=== PATIENT | female | born 1975 | race Caucasian/White ===

== ENCOUNTER 2017-01-22 23:38 | Emergency (ER) | payer OTHER ==
[~2017-01-22] VITALS: Ht 162.6 cm; Wt 81.6 kg
[~2017-01-22 23:38] MED LIST: MECL25TA3 PO
--- NOTE | 2017-01-22 23:54 | ED.ADGEN ---
Past History Past Medical History: Anxiety, Diabetes Past Surgical History: Appendectomy, Tonsillectomy, Tubal ligation, Other Alcohol Use: None Drug Use: None Adult General Chief Complaint Chief Complaint ".. I ve had severe diarrhea for last 3 days... up to like 50 stools a day... ".." It is like I have a stomach flu..." HPI HPI Patient is a 41 year old female who presents with generalized abdomen pain and watery diarrhea up 50 x day. Pt. works in physical therapy. No specific history of ill contacts. No recent travel. No history of bad food. Patient normally healthy. Review of Systems Review of Systems Constitutional: Denies fever or chills [] Eyes: Denies change in visual acuity, redness, or eye pain [] HENT: Denies nasal congestion or sore throat [] Respiratory: Denies cough or shortness of breath [] Cardiovascular: No additional information not addressed in HPI [] GI: Complaints of generalized abdominal pain, nausea, and diarrhea [] : Denies dysuria or hematuria [] Musculoskeletal: Denies back pain or joint pain [] Integument: Denies rash or skin lesions [] Neurologic: Denies headache, focal weakness or sensory changes [] Endocrine: Denies polyuria or polydipsia [] Family History Family History Noncontributory Current Medications Current Medications Current Medications Medications (Trade) Dose Ordered Sig/Caity Start Time Stop Time Status Last Admin Dose Admin Famotidine (Pepcid) 20 mg 1X ONCE 01/23/17 00:15 01/23/17 00:16 DC Lactated Ringer's (Iv Lactated Ringers) 1,000 ml @ 1,000 mls/hr Q1H 01/23/17 00:00 01/23/17 01:04 DC Morphine Sulfate (Morphine 10mg Syringe) 10 mg 1X ONCE 01/23/17 00:15 01/23/17 00:16 DC Ondansetron HCl (Zofran) 8 mg 1X ONCE 01/23/17 00:00 01/23/17 00:01 DC Allergies Allergies Allergies Coded Allergies Type Severity Reaction Last Updated Verified No Known Drug Allergies 11/15/15 No Physical Exam Physical Exam Constitutional: Moderate distress, non-toxic appearance. [] HENT: Normocephalic, atraumatic, bilateral external ears normal, oropharynx dry, , no oral exudates, nose normal. [] Eyes: PERRLA, EOMI, conjunctiva normal, no discharge. [] Neck: Normal range of motion, no tenderness, supple, no stridor. [] Cardiovascular:Heart rate regular rhythm, no murmur [] Lungs & Thorax: Bilateral breath sounds clear to auscultation [] Abdomen: Bowel sounds hyperactive,, soft, mild generalized tenderness, no masses , no pulsatile masses. No true rebound. Old surgical scars. Skin: Warm, dry, no erythema, no rash. [Multiple tattoos Back: No tenderness, no CVA tenderness. [] Extremities: No tenderness, no cyanosis, no clubbing, ROM intact, no edema. No psoas or obturator sign Neurologic: Alert and oriented X 3, normal motor function, normal sensory function, no focal deficits noted. [] Psychologic: Affect anxious, judgement normal, mood normal. [] Current Patient Data Vital Signs Vital Signs Date Time Temp Pulse Resp B/P Pulse Ox O2 Delivery O2 Flow Rate FiO2 01/23/17 00:54 80 122/62 01/22/17 23:55 98.4 20 99 Room Air Lab Results Laboratory Tests Test 01/22/17 23:59 White Blood Count 11.9x10^3/uL (4.0-11.0) H Red Blood Count 4.49x10^6/uL (3.50-5.40) Hemoglobin 13.1g/dL (12.0-15.5) Hematocrit 39.2% (36.0-47.0) Mean Corpuscular Volume 87fL (79-100) Mean Corpuscular Hemoglobin 29pg (25-35) Mean Corpuscular Hemoglobin Concent 33g/dL (31-37) Red Cell Distribution Width 13.7% (11.5-14.5) Platelet Count 254x10^3/uL (140-400) Neutrophils (%) (Auto) 57% (31-73) Lymphocytes (%) (Auto) 28% (24-48) Monocytes (%) (Auto) 10% (0-9) H Eosinophils (%) (Auto) 4% (0-3) H Basophils (%) (Auto) 1% (0-3) Neutrophils # (Auto) 6.8x10^3uL (1.8-7.7) Lymphocytes # (Auto) 3.4x10^3/uL (1.0-4.8) Monocytes # (Auto) 1.2x10^3/uL (0.0-1.1) H Eosinophils # (Auto) 0.4x10^3/uL (0.0-0.7) Basophils # (Auto) 0.1x10^3/uL (0.0-0.2) Urine Collection Type Unknown Urine Color Straw Urine Clarity Clear Urine pH 6.5 Urine Specific [place] 1.010 Urine Protein 30 mg/dl (NEG-TRACE) Urine Glucose (UA) Negmg/dL (NEG) Urine Ketones (Stick) Negmg/dL (NEG) Urine Blood Trace (NEG) Urine Nitrite Neg (NEG) Urine Bilirubin Neg (NEG) Urine Urobilinogen Dipstick 0.2mg/dL (0.2 mg/dL) Urine Leukocyte Esterase Neg (NEG) Urine RBC Occ/HPF (0-2) Urine WBC 0/HPF (0-4) Urine Squamous Epithelial Cells Mod/LPF Urine Bacteria Few/HPF (0-FEW) Maternal Serum HCG Beta Subunit < 1mIU/mL (0-6) Sodium Level 139mmol/L (136-145) Potassium Level 3.4mmol/L (3.5-5.1) L Chloride Level 104mmol/L (98-107) Carbon Dioxide Level 25mmol/L (21-32) Anion Gap 10 (6-14) Blood Urea Nitrogen 8mg/dL (7-20) Creatinine 0.8mg/dL (0.6-1.0) Estimated GFR (Cockcroft-Gault) 79.0 Glucose Level 135mg/dL (70-99) H Calcium Level 8.8mg/dL (8.5-10.1) Total Bilirubin 0.4mg/dL (0.2-1.0) Direct Bilirubin 0.1mg/dL (0.0-0.2) Aspartate Amino Transferase (AST) 15U/L (15-37) Alanine Aminotransferase (ALT) 26U/L (14-59) Alkaline Phosphatase 91U/L (46-116) Total Protein 8.0g/dL (6.4-8.2) Albumin 3.9g/dL (3.4-5.0) Amylase Level 47U/L (25-115) Lipase 223U/L (73-393) Urine Opiates Screen Neg (NEG) Urine Methadone Screen Neg (NEG) Urine Barbiturates Neg (NEG) Urine Phencyclidine Screen Neg (NEG) Urine Amphetamine/Methamphetamine Neg (NEG) Urine Benzodiazepines Screen Neg (NEG) Urine Cocaine Screen Neg (NEG) Urine Cannabinoids Screen Neg (NEG) Urine Ethyl Alcohol Neg (NEG) EKG EKG [] Radiology/Procedures Radiology/Procedures [] Course & Med Decision Making Course & Med Decision Making Pertinent Labs and Imaging studies reviewed. (See chart for details). Pt. at 0040 hrs advised she felt so much better, she wanted to refuse further work up or any meds. Pt. encouraged to stay on a clear fluid diet only for 48 hours. No milk products no solids. Clear fluids only to allow bowel rest. Patient encouraged to try [id number] Pepto-Bismol diarrhea reoccurs. Patient encouraged to return if she decided she wanted further workup. Patient must follow-up primary care. [] Final Impression Final Impression 1. Abdomen Pain 2. Diarrhea[] Problems: Dragon Disclaimer Dragon Disclaimer This electronic medical record was generated, in whole or in part, using a voice recognition dictation system. TIFFANIE SERRANO MD Jan 22, 2017 23:54
[2017-01-23] MEDS ORDERED: IV RINGERS SOLUTION,LACTATED 1,000 ML IV SCH
[2017-01-23] MEDS ORDERED: ONDANSETRON PF 4 MG/2 ML VIAL. IV ONE
[2017-01-23] MEDS ORDERED: FAMOTIDINE 20 MG/2 ML VIAL IVP ONE (00:15)
[2017-01-23] MEDS ORDERED: MORPHINE SULFATE 10 MG/ML SYRINGE. SQ ONE (00:15)
[2017-01-23 00:27] LABS: BASO # 0.1 x10^3/uL (0.0-0.2); BASO % 1 % (0-3); EOS # 0.4 x10^3/uL (0.0-0.7); EOS % 4 % (0-3); HEMATOCRIT 39.2 % (36.0-47.0); HEMOGLOBIN 13.1 g/dL (12.0-15.5); LYMPH # 3.4 x10^3/uL (1.0-4.8); LYMPH % 28 % (24-48); MEAN CORPUSCULAR HEMOGLOBIN 29 pg (25-35); MEAN CORPUSCULAR HGB CONC 33 g/dL (31-37); MEAN CORPUSCULAR VOLUME 87 fL (79-100); MONO # 1.2 x10^3/uL (0.0-1.1); MONO % 10 % (0-9); NEUT # 6.8 x10^3uL (1.8-7.7); NEUT % 57 % (31-73); PLATELET COUNT 254 x10^3/uL (140-400); RED BLOOD COUNT 4.49 x10^6/uL (3.50-5.40); RED CELL DISTRIBUTION WIDTH 13.7 % (11.5-14.5); WHITE BLOOD COUNT 11.9 x10^3/uL (4.0-11.0)
[2017-01-23 00:45] LABS: ALBUMIN 3.9 g/dL (3.4-5.0); CALCIUM 8.8 mg/dL (8.5-10.1); CREATININE 0.8 mg/dL (0.6-1.0); DIRECT BILIRUBIN 0.1 mg/dL (0.0-0.2); POTASSIUM 3.4 mmol/L (3.5-5.1); TOTAL BILIRUBIN 0.4 mg/dL (0.2-1.0)
[2017-01-23 00:46] LABS: BARBITURATES NEG (NEG); BENZODIAZEPINES NEG (NEG); CANNABINOIDS NEG (NEG); COCAINE NEG (NEG); METHADONE NEG (NEG); OPIATES NEG (NEG); PHENCYCLIDINE NEG (NEG)
[2017-01-23 00:53] LABS: BILIRUBIN,URINE NEG (NEG); CLARITY,URINE CLEAR; COLOR,URINE STRAW; GLUCOSE,URINE NEG (NEG); NITRITE,URINE NEG (NEG); RBC,URINE OCC /HPF (0-2); UROBILINOGEN,URINE 0.2 mg/dL (0.2 mg/dL)
[2017-01-23 00:54] VITALS: BP 122/62
[2017-01-23 00:54] LABS: BACTERIA,URINE FEW /HPF (0-FEW); SQUAMOUS EPITHELIAL CELL,UR MOD /LPF; WBC,URINE 0 /HPF (0-4)
[2017-01-23 00:57] LABS: AMPHETAMINE/METHAMPHETAMINE NEG (NEG)
== END 2017-01-23 01:04 | disposition home or self-care (01) ==
LOC: ER 23:38
DX: R10.84 Generalized abdominal pain (principal); R19.7 Diarrhea, unspecified; R11.0 Nausea; E11.9 Type 2 diabetes mellitus without complications; Z90.49 Acquired absence of other specified parts of digestive tract; Z98.51 Tubal ligation status
CPT/HCPCS: 36415; 80048; 80076; 80305; 81001; 82150; 83690; 84702; 85027; G0481; 99284-25

== ENCOUNTER 2017-07-26 13:38 | Emergency (ER) | payer SELFPAY ==
[~2017-07-26] VITALS: Ht 170.2 cm; Wt 99.8 kg
[2017-07-26] MEDS ORDERED: AMOX875T PO (14:34)
[2017-07-26 14:36] VITALS: BP 141/71
--- NOTE | 2017-07-26 14:38 | PHYS DOC ---
General Chief Complaint: MULTIPLE COMPLAINTS Stated Complaint: MULTIPLE COMPLAINTS Time Seen by MD: 14:04 Source: patient Exam Limitations: no limitations Problems: History of Present Illness Initial Comments Patient is a 42-year-old female who comes to the ED with facial pressure and intermittent dizziness. 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 She states that due to benefits she has been off of all of her medications including oral diabetes medications and SSRI for 5-6 weeks. She states that she will not resume those medications until she obtains her disability status anticipated on September 03. Patient states that for the past 7-10 days she's had facial pressure worse with forward bending, green productive cough and nasal discharge, and intermittent dizziness with sudden head movements (patient states she is had benign positional vertigo diagnosis in the past.) She denies any chest pain, shortness of breath, global headache, fever chills sweats or myalgias. Denies any bowel or bladder symptoms and states that she understands the risks of not being on her medications but states she has no choice. Fingerstick blood glucose is 134 in the department nonfasting patient has diabetic testing supplies at home as well as simvastatin. She's been off Lexapro for 5-6 weeks and is aware of serotonin syndrome, states approximately 3 weeks ago she had several days of "worsening diabetic neuropathy" which in retrospect she can attributed to possible mild serotonin syndrome. Otherwise she 's had no new or worsening neurologic symptoms. Timing/Duration: 1 week, constant Severity: moderate Modifying Factors: worse with movement, improves with rest Associated Symptoms: cough, headaches Allergies: Coded Allergies: No Known Drug Allergies (Unverified , 11/15/15) Departure Time of Disposition: 14:35 Disposition: 01 HOME, SELF-CARE Diagnosis: acute sinusitis, left serous otitis media Condition: GOOD Patient Instructions: Serous Otitis Media, Sinusitis, [id number] Additional Instructions: Off work today, note given. Continue home glucose monitoring and seek medical assistance as needed. Aggressive hydration to prevent dehydration and liquefy secretions and mucous. [id number] Tylenol as needed. Prescription: Amoxicillin Follow-up with a doctor in 5-7 days if no improvement. Return to ED with new or changing symptoms. Past Medical History Medical History: other (diabetes, diabetic neuropathy, anxiety, hypothyroidism , benign positional vertigo) Surgical History: other (appendectomy, tonsillectomy, tubal ligation) Social History Smoker: non-smoker Alcohol: none Drugs: none Review of Systems Constitutional: denies chills, denies diaphoresis, denies fever, denies malaise EENTM: see HPI, ear pain, denies ear discharge, nose congestion Respiratory: see HPI, cough, denies shortness of breath, denies wheezing Cardiovascular: denies chest pain, denies palpitations, denies syncope Gastrointestinal: denies abdominal pain, denies diarrhea, denies nausea, denies vomiting Genitourinary: denies dysuria, denies frequency, denies hematuria Musculoskeletal: denies back pain, denies joint swelling, denies neck pain Psychiatric/Neurological: see HPI, headache Hematologic/Lymphatic: denies blood clots, denies easy bleeding, denies easy bruising Physical Exam General Appearance: WD/WN, no apparent distress Eyes: bilateral eye normal inspection, bilateral eye PERRL, bilateral eye EOMI Ear, Nose, Throat: other (serous fluid noted bilaterally left greater than right, yellow nasal discharge and postnasal drip as well as frontal and maxillary sinus tenderness) Neck: non-tender, supple Respiratory: normal breath sounds, no respiratory distress Cardiovascular: normal peripheral pulses, regular rate, rhythm Gastrointestinal: non tender, soft Back: no CVA tenderness, no vertebral tenderness Extremities: non-tender, normal inspection Neurologic/Psychiatric: baseball winder II-XII nml as tested, no motor/sensory deficits, alert, normal mood/affect, oriented x 3 Skin: normal color, warm/dry Orders, Labs, Meds Acute sinusitis with resultant eustachian tube dysfunction and intermittent benign positional vertigo symptoms noted to be cause of the patient's presenting complaints. I discussed treatment, including Antivert, antimicrobial therapy, and continuing of her chronic medications. I discussed the danger and risk of end organ damage with untreated chronic disease. Patient states that she cannot afford the medications and will not obtain those prescriptions until September 03. I discussed resources such as [facility] and [facility], patient states to take those and the consideration. I discussed treatment options, patient states that realistically she will fill an amoxicillin prescription for her sinus infection but that she has prescriptions for her other conditions that she simply will not/cannot fill due to finances. 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 She is alert and oriented 3 and understands the risks of untreated chronic disease, no further testing indicated no acute emergent condition present on physical exam. Patient's questions were answered she expressed agreement and understanding of the treatment plan. PREET ADAME DO Jul 26, 2017 14:38
== END 2017-07-26 14:56 | disposition home or self-care (01) ==
LOC: ER 13:38
DX: J01.90 Acute sinusitis, unspecified (principal); H65.92 Unspecified nonsuppurative otitis media, left ear; E11.40 Type 2 diabetes mellitus with diabetic neuropathy, unspecified; E03.9 Hypothyroidism, unspecified
CPT/HCPCS: 82947; 99282; 99283

== ENCOUNTER 2017-08-13 10:44 | Emergency (ER) | payer SELFPAY ==
[~2017-08-13] VITALS: Ht 170.2 cm; Wt 99.8 kg
[~2017-08-13 10:44] MED LIST changes: +AMOX875T PO
[2017-08-13 11:12] VITALS: BP 163/70
[2017-08-13] MEDS ORDERED: IV RINGERS SOLUTION,LACTATED 1,000 ML IV SCH (11:30)
[2017-08-13 11:43] LABS: BASO # 0.1 x10^3/uL (0.0-0.2); BASO % 1 % (0-3); EOS # 0.1 x10^3/uL (0.0-0.7); EOS % 1 % (0-3); HEMATOCRIT 38.4 % (36.0-47.0); HEMOGLOBIN 13.3 g/dL (12.0-15.5); LYMPH # 1.8 x10^3/uL (1.0-4.8); LYMPH % 18 % (24-48); MEAN CORPUSCULAR HEMOGLOBIN 30 pg (25-35); MEAN CORPUSCULAR HGB CONC 35 g/dL (31-37); MEAN CORPUSCULAR VOLUME 86 fL (79-100); MONO # 0.8 x10^3/uL (0.0-1.1); MONO % 8 % (0-9); NEUT # 7.1 x10^3uL (1.8-7.7); NEUT % 72 % (31-73); PLATELET COUNT 280 x10^3/uL (140-400); RED BLOOD COUNT 4.46 x10^6/uL (3.50-5.40); RED CELL DISTRIBUTION WIDTH 13.8 % (11.5-14.5); WHITE BLOOD COUNT 9.9 x10^3/uL (4.0-11.0)
--- NOTE | 2017-08-13 11:43 | RAD ---
Portable AP upright view CXR: Clinical indications: Cough. Comparison: November 15, 2015 Findings: No acute lung infiltrate or pleural effusion or pulmonary edema or lung mass or pneumothorax is seen. The heart size, pulmonary vasculature, mediastinum and both carlos are unremarkable. Impression: No acute radiographic abnormality is seen.
[2017-08-13 11:45] LABS: BARBITURATES NEG (NEG); BENZODIAZEPINES NEG (NEG); CANNABINOIDS NEG (NEG); COCAINE NEG (NEG); METHADONE NEG (NEG); OPIATES NEG (NEG); PHENCYCLIDINE NEG (NEG)
[2017-08-13 11:46] LABS: AMPHETAMINE/METHAMPHETAMINE NEG (NEG)
--- NOTE | 2017-08-13 11:49 | PHYS DOC ---
General Chief Complaint: HEADACHE Stated Complaint: H/A Time Seen by MD: 11:10 Source: patient, old records Exam Limitations: no limitations Problems: History of Present Illness Initial Comments Patient's a 42-year-old female who comes to the ED via EMS for headache dizziness and nausea. 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 She complains of a frontal headache worse with forward bending, nasal congestion, ear fullness , and dizziness. She admits to not drinking very much and her headache and lightheadedness are worse when she is up and active. Patient was seen here 2 weeks ago diagnosed with sinusitis and benign positional vertigo she states she took 2 of her amoxicillin pills and has not completed any of the other therapy. When asked why she didn't take her full antibiotic course she did not have any answer. She has history of diabetes hypothyroidism and anxiety, she has taken herself off of all her medications several months ago because she says she can't afford them. She is waiting for disability at which time she states she will get back on top of her health care. On arrival her blood pressure is 163/70 otherwise vital signs are stable. She denies chest pain shortness of breath abdominal pain nausea vomiting or diarrhea. No fever chills sweats or body aches and states she has history of asthma and has had a dry cough no dyspnea on exertion. Timing/Duration: intermittent Severity: mild Modifying Factors: worse with movement Associated Symptoms: cough, headaches, other Allergies: Coded Allergies: No Known Drug Allergies (Unverified , 11/15/15) Past Medical History Medical History: other (anxiety, asthma, diabetes, hypothyroidism) Surgical History: other Social History Smoker: cigarettes, other (vape pen) Alcohol: none Drugs: none Review of Systems Constitutional: denies chills, denies diaphoresis, denies fever, malaise EENTM: see HPI, denies eye pain, denies blurred vision, ear pain, denies ear discharge, nose congestion, denies throat pain, denies throat swelling Respiratory: cough, denies shortness of breath, denies wheezing Cardiovascular: denies chest pain, denies palpitations, denies syncope Gastrointestinal: denies abdominal pain, denies diarrhea, denies nausea, denies vomiting Genitourinary: denies dysuria, denies frequency, denies hematuria Musculoskeletal: denies back pain, denies joint swelling, denies neck pain Psychiatric/Neurological: see HPI, denies paresthesia, denies seizure, denies weakness Physical Exam General Appearance: no apparent distress, obese Eyes: bilateral eye normal inspection, bilateral eye PERRL, bilateral eye EOMI Ear, Nose, Throat: hearing grossly normal, normal ENT inspection, normal pharynx, other (yellow nasal, frontal sinus tenderness) Neck: full range of motion (further), supple Respiratory: chest non-tender, lungs clear, normal breath sounds, no respiratory distress Cardiovascular: normal peripheral pulses, regular rate, rhythm Gastrointestinal: non tender, soft Back: no CVA tenderness, no vertebral tenderness Extremities: normal range of motion, non-tender Neurologic/Psychiatric: supervisory investigative specialist II-XII nml as tested, no motor/sensory deficits, alert, normal mood/affect, oriented x 3 Skin: normal color, warm/dry Orders, Labs, Meds EKG: Normal sinus rhythm 69 bpm no STEMI. Interpreted by Dr. Adame. PATIENT: DONELL SHERIDAN ACCOUNT: [id number] : 1975 LOCATION: ER AGE: 42 SEX: F EXAM STATUS: REG ER ORD. PHYSICIAN: PREET ADAME DO REASON: cough, PROCEDURE: PORTABLE CHEST 1V Portable AP upright view CXR: Clinical indications: Cough. Comparison: November 15, 2015 Findings: No acute lung infiltrate or pleural effusion or pulmonary edema or lung mass or pneumothorax is seen. The heart size, pulmonary vasculature, mediastinum and both carlos are unremarkable. Impression: No acute radiographic abnormality is seen. DICTATED AND SIGNED BY: BATSHEVA LARSEN MD DATE: 08/13/17 1140 CC: RANJAN JOSEPH MD; PREET ADAME DO ~ Labs and urine studies unremarkable. Patient received normal saline IV bolus 1 L, DuoNeb, and actually prior to her results becoming available the patient was requesting to leave because she felt better. I discussed signs and symptoms to monitor as well as indications for urgent return. I discussed compliance with medications and control of chronic illnesses. Her questions were answered to her satisfaction and she expressed agreement and understanding with the treatment plan and follow-up. Departure Time of Disposition: 13:10 Disposition: 01 HOME, SELF-CARE Diagnosis: chronic sinusitis, untreated chronic disease Condition: GOOD Patient Instructions: Sinus Headache, [id number] Additional Instructions: Rest, no strenuous activity. Aggressive hydration with Gatorade or water. Finish prior amoxicillin prescription. Go fill your thyroid medications and start taking them. Continue close glucose monitoring. Follow-up with your doctor next week for recheck. Return to ED with new or changing symptoms. PREET ADAME DO Aug 13, 2017 11:49
[2017-08-13] MEDS ORDERED: ONDANSETRON PF 4 MG/2 ML VIAL. IV ONE (11:50)
[2017-08-13] MEDS ORDERED: KETOROLAC 30 MG/ML VIAL. IV ONE (11:50)
[2017-08-13] MEDS ORDERED: ONDANSETRON ODT 4 MG TAB.RAPDIS PO ONE (11:55)
[2017-08-13] MEDS ORDERED: IPRATRPIUM/ALBUTEROL 0.5/2.5MG 3 ML NEBU. NEB ONE (11:55)
[2017-08-13 11:57] LABS: ALBUMIN 3.8 g/dL (3.4-5.0); CALCIUM 8.7 mg/dL (8.5-10.1); CREATININE 0.7 mg/dL (0.6-1.0); GFR 91.8; TOTAL BILIRUBIN 0.4 mg/dL (0.2-1.0); TOTAL PROTEIN 7.8 g/dL (6.4-8.2)
[2017-08-13 12:02] LABS: BILIRUBIN,URINE NEG (NEG); CLARITY,URINE CLEAR; COLOR,URINE STRAW; GLUCOSE,URINE NEG (NEG); UROBILINOGEN,URINE 0.2 mg/dL (0.2 mg/dL)
[2017-08-13 12:03] LABS: BACTERIA,URINE 0 /HPF (0-FEW); NITRITE,URINE NEG (NEG); RBC,URINE 0 /HPF (0-2); SQUAMOUS EPITHELIAL CELL,UR FEW /LPF; WBC,URINE RARE /HPF (0-4)
[2017-08-13] MEDS ORDERED: IV NORMAL SALINE 1,000ML 1,000 ML IV SCH (12:16)
--- NOTE | 2017-08-13 13:57 | EKG ---
[address] [address] Test Date: 2017-08-13 Test Time: 12:29:06 Pat Name: DONELL SHERIDAN Department: Room: Gender: F Air Traffic Instructor: KEN : 1975 Requested By: PREET ADAME Order Number: [id number] Reading MD: Sebastián Magallon MD Measurements Intervals [place] Rate: 69 P: 55 [place]: 160 QRS: 1 QRSD: 86 T: 40 QT: 418 QTc: 449 Interpretive Statements SINUS RHYTHM Electronically Signed On 08-16-2017 10:53:24 WEATHERIZATION TECHNICIAN by Sebastián Magallon MD
== END 2017-08-13 13:23 | disposition home or self-care (01) ==
LOC: ER 10:44
DX: J32.9 Chronic sinusitis, unspecified (principal); E03.9 Hypothyroidism, unspecified; E11.9 Type 2 diabetes mellitus without complications; J45.909 Unspecified asthma, uncomplicated; F41.9 Anxiety disorder, unspecified; F17.210 Nicotine dependence, cigarettes, uncomplicated
CPT/HCPCS: 36415; 71010; 80053; 80307; 81001; 82550; 82947; 84484; 85025; 93005; 94640; 96360; 99285; G0480; J7120; J7620; G0479

== ENCOUNTER 2017-09-15 09:19 | Emergency (ER) | payer SELFPAY ==
[~2017-09-15] VITALS: Ht 170.2 cm; Wt 98.2 kg
--- NOTE | 2017-09-15 09:37 | EKG ---
[address] [address] Test Date: 2017-09-15 Test Time: 09:34:15 Pat Name: DONELL SHERIDAN Department: Room: Gender: F Repair Cameraman: KEN : 1975 Requested By: KINDRA GERMAIN Order Number: [id number] Reading MD: Sebastián Magallon MD Measurements Intervals [place] Rate: 76 P: 48 RI: 148 QRS: 43 QRSD: 90 T: 59 QT: 386 QTc: 439 Interpretive Statements SINUS RHYTHM Electronically Signed On 09-21-2017 14:15:11 SALES SUPERINTENDENT by Sebastián Magallon MD
--- NOTE | 2017-09-15 09:54 | PHYS DOC ---
Past History Past Medical History: Anxiety, Diabetes, Hypothyroid Past Surgical History: Appendectomy, Tonsillectomy, Other Alcohol Use: None Drug Use: None Adult General Chief Complaint Chief Complaint: CHEST PAIN [facility] HPI 42-year-old female patient with history of diabetes mellitus brought in by EMS because of chest pain. Patient states she had nonexertional left arm pain while she was at work as a sharp pain and then left precordial sharp and patient pain without radiation. Patient complaining of hyperventilation and palpitation with dizziness without nausea and shortness of breath patient rated her pain 8/10 and states she checked her blood pressure and it was 290 and became more anxious. Patient states her blood pressure was 160 by EMS and she had 325 mg of aspirin and did not want to take nitroglycerin and her pain resolved at arrival to ER. Patient states she has has history of chest pain with episodes of anxiety. Patient has positive family history for CAD but denies any history of coronary artery disease by herself. Patient does not have a history of hypertension but takes lisinopril related to her diabetes. Review of Systems Review of Systems Constitutional: Denies fever or chills [] Eyes: Denies change in visual acuity, redness, or eye pain [] HENT: Denies nasal congestion or sore throat [] Respiratory: Denies cough or shortness of breath [] Cardiovascular: No additional information not addressed in HPI [] GI: Denies abdominal pain, nausea, vomiting, bloody stools or diarrhea [] : Denies dysuria or hematuria [] Musculoskeletal: Denies back pain or joint pain [] Integument: Denies rash or skin lesions [] Neurologic: Denies headache, focal weakness or sensory changes [] Endocrine: Denies polyuria or polydipsia [] All other systems were reviewed and found to be within normal limits, except as documented in this note. Allergies Allergies Allergies Coded Allergies Type Severity Reaction Last Updated Verified No Known Drug Allergies 11/15/15 No Physical Exam Physical Exam Constitutional: Well developed, well nourished, no acute distress, non-toxic appearance, anxious. [] HENT: Normocephalic, atraumatic, bilateral external ears normal, oropharynx moist, no oral exudates, nose normal. [] Eyes: PERRLA, EOMI, conjunctiva normal, no discharge. [] Neck: Normal range of motion, no tenderness, supple, no stridor. [] Cardiovascular:Heart rate regular rhythm, no murmur [] Lungs & Thorax: Bilateral breath sounds clear to auscultation [] Abdomen: Bowel sounds normal, soft, no tenderness, no masses, no pulsatile masses. [] Skin: Warm, dry, no erythema, no rash. [] Back: No tenderness, no CVA tenderness. [] Extremities: No tenderness, no cyanosis, no clubbing, ROM intact, no edema. [] Neurologic: Alert and oriented X 3, normal motor function, normal sensory function, no focal deficits noted. [] Psychologic: Affect normal, judgement normal, anxious. EKG EKG [EKG interpreted by me. EKG at 0934 showed normal sinus rhythm, no ST-T wave elevation, Q waves in anteroseptal leads] Radiology/Procedures Radiology/Procedures [Chest x-ray and gallbladder ultrasound was unremarkable.] Course & Med Decision Making Course & Med Decision Making Pertinent Labs and Imaging studies reviewed. (See chart for details) Evaluation of patient in ER showed 42-year-old male patient brought in by EMS because of chest pain. Patient did not have chest pain at arrival to ER and states that she tripped anxiety she feels chest pain. Patient had unremarkable physical exam and labs. EKG did not show acute ST and T-wave elevation and gallbladder ultrasound was unremarkable. Patient felt dizzy with walking and became anxious and her blood pressure increased to 180, that decreased to 126 after a short time rest. Patient does have history of chronic dizziness. The patient was chest pain-free in ER and instructed to follow with her primary care physician for more cardiac evaluation and return to ER if developed chest pain again. [] Dragon Disclaimer Dragon Disclaimer This electronic medical record was generated, in whole or in part, using a voice recognition dictation system. Departure Departure: Impression: Primary Impression: Acute chest pain Additional Impressions: Anxiety attack Left arm pain Elevated systolic blood pressure reading without diagnosis of hypertension History of diabetes mellitus Disposition: 01 HOME, SELF-CARE (At 1123) Condition: IMPROVED Referrals: RANJAN JOSEPH MD (PCP) Patient Instructions: Anxiety and Panic Attacks, Chest Pain (Nonspecific) Additional Instructions: Follow-up with your primary care physician for more heart evaluation as outpatient in 2-3 days Problem Qualifiers KINDRA GERMAIN MD Sep 15, 2017 09:54
[2017-09-15 09:57] LABS: BASO # 0.1 x10^3/uL (0.0-0.2); BASO % 1 % (0-3); EOS # 0.1 x10^3/uL (0.0-0.7); EOS % 1 % (0-3); HEMATOCRIT 35.8 % (36.0-47.0); HEMOGLOBIN 12.4 g/dL (12.0-15.5); LYMPH # 1.8 x10^3/uL (1.0-4.8); LYMPH % 22 % (24-48); MEAN CORPUSCULAR HEMOGLOBIN 29 pg (25-35); MEAN CORPUSCULAR HGB CONC 35 g/dL (31-37); MEAN CORPUSCULAR VOLUME 84 fL (79-100); MONO # 0.7 x10^3/uL (0.0-1.1); MONO % 8 % (0-9); NEUT # 5.4 x10^3uL (1.8-7.7); NEUT % 67 % (31-73); PLATELET COUNT 271 x10^3/uL (140-400); RED BLOOD COUNT 4.24 x10^6/uL (3.50-5.40); RED CELL DISTRIBUTION WIDTH 13.5 % (11.5-14.5); WHITE BLOOD COUNT 8.1 x10^3/uL (4.0-11.0)
--- NOTE | 2017-09-15 10:05 | RAD ---
Portable chest, 09/15/2017: History: Chest pains Comparison is made to a study from 08/13/2017. The heart size and pulmonary vascularity are normal. No pulmonary infiltrates are seen. There is no evidence of pleural fluid. Mild spurring is present in the spine. IMPRESSION: No acute cardiopulmonary abnormality is detected.
[2017-09-15 10:17] LABS: BACTERIA,URINE FEW /HPF (0-FEW); BILIRUBIN,URINE NEG (NEG); CLARITY,URINE HAZY; COLOR,URINE YELLOW; GLUCOSE,URINE NEG (NEG); NITRITE,URINE NEG (NEG); RBC,URINE RARE /HPF (0-2); SQUAMOUS EPITHELIAL CELL,UR MOD /LPF; UROBILINOGEN,URINE 0.2 mg/dL (0.2 mg/dL); WBC,URINE RARE /HPF (0-4)
[2017-09-15 10:21] LABS: ALBUMIN 3.7 g/dL (3.4-5.0); CALCIUM 8.9 mg/dL (8.5-10.1); CREATININE 0.6 mg/dL (0.6-1.0); GFR 109.6; MAGNESIUM 1.8 mg/dL (1.8-2.4); POTASSIUM 3.9 mmol/L (3.5-5.1); TOTAL BILIRUBIN 0.4 mg/dL (0.2-1.0); TOTAL PROTEIN 7.5 g/dL (6.4-8.2)
[2017-09-15 10:24] LABS: U PREG PATIENT NEGATIVE (NEG)
--- NOTE | 2017-09-15 10:51 | RAD ---
Right upper quadrant abdominal ultrasound, 09/15/2017: History: Substernal pain The gallbladder is within normal limits in size. There is no sonographic evidence of cholelithiasis. The gallbladder carlos are not thickened. The common hepatic duct measures 5.9 mm which is at the upper limits of normal. No intrahepatic bile duct dilatation is evident. There is no evidence of a hepatic mass. The visualized portions of the pancreas and right kidney are unremarkable. IMPRESSION: No significant abnormality is detected.
[2017-09-15 11:40] VITALS: BP 111/71
== END 2017-09-15 11:45 | disposition home or self-care (01) ==
LOC: ER 09:19
DX: F41.1 Generalized anxiety disorder (principal); M79.602 Pain in left arm; R03.0 Elevated blood-pressure reading, without diagnosis of hypertension; E11.9 Type 2 diabetes mellitus without complications; E03.9 Hypothyroidism, unspecified
CPT/HCPCS: 36415; 71010; 76705; 80053; 81001; 81025; 82553; 83690; 83735; 83880; 84484; 85025; 85610; 93005; 99285-25

== ENCOUNTER 2017-11-18 11:58 | Emergency (ER) | payer SELFPAY ==
[~2017-11-18] VITALS: Ht 170.2 cm; Wt 99.8 kg
[2017-11-18] MEDS ORDERED: FLUT9.9S NS (12:54)
--- NOTE | 2017-11-18 12:57 | PHYS DOC ---
Past History Past Medical History: Anxiety, Diabetes, High Cholesterol, Hypothyroid Past Surgical History: Appendectomy, Tonsillectomy, Tubal ligation, Other Alcohol Use: None Drug Use: None Adult General Chief Complaint Chief Complaint: DIZZY/LIGHT HEADED HPI HPI Patient is a 42 year old F who presents with dizziness just prior to arrival. 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 She had no other associated symptoms. When she was checked by a staff nurse she was found to have high blood pressure. She states that at that time her anxiety significantly increased in her symptoms also increased. She states that upon EMS arrival her anxiety decreased and her symptoms also decreased. Over the past 3-4 days she has also noted mild to moderate nasal congestion with postnasal drip. She also has had associated minimal cough Review of Systems Review of Systems Constitutional: Denies fever or chills [] Eyes: Denies change in visual acuity, redness, or eye pain [] HENT: Negative except history of present illness Respiratory: Denies cough or shortness of breath [] Cardiovascular: No additional information not addressed in HPI [] GI: Denies abdominal pain, nausea, vomiting, bloody stools or diarrhea [] : Denies dysuria or hematuria [] Musculoskeletal: Denies back pain or joint pain [] Integument: Denies rash or skin lesions [] Neurologic: Denies headache, focal weakness or sensory changes [] Endocrine: Denies polyuria or polydipsia [] All other systems were reviewed and found to be within normal limits, except as documented in this note. Family History Family History No pertinent family medical history was reported Current Medications Current Medications Current medications were reviewed Allergies Allergies Allergies Coded Allergies Type Severity Reaction Last Updated Verified No Known Drug Allergies 11/18/17 No Physical Exam Physical Exam Constitutional: Well developed, well nourished, no acute distress, non-toxic appearance. [] HENT: Normocephalic, atraumatic, mild nasal mucosa erythema and edema bilaterally Eyes: PERRLA, EOMI, conjunctiva normal, no discharge. [] Neck: Normal range of motion, no tenderness, supple, no stridor. [] Cardiovascular:Heart rate regular rhythm, no murmur [] Lungs & Thorax: Bilateral breath sounds clear to auscultation [] Abdomen: Bowel sounds normal, soft, no tenderness, no masses, no pulsatile masses. [] Skin: Warm, dry, no erythema, no rash. [] Back: No tenderness, no CVA tenderness. [] Extremities: No tenderness, no cyanosis, no clubbing, ROM intact, no edema. [] Neurologic: Alert and oriented X 3, normal motor function, normal sensory function, no focal deficits noted. [] Psychologic: Affect normal, judgement normal, mood normal. [] Current Patient Data Vital Signs Vital Signs Date Time Temp Pulse Resp B/P (MAP) Pulse Ox O2 Delivery O2 Flow Rate FiO2 11/18/17 12:05 98.8 77 18 96 Room Air EKG EKG [] Radiology/Procedures Radiology/Procedures [] Course & Med Decision Making Course & Med Decision Making Pertinent Labs and Imaging studies reviewed. (See chart for details) Julio states that her symptoms has resolved prior to any intervention. Dragon Disclaimer Dragon Disclaimer This electronic medical record was generated, in whole or in part, using a voice recognition dictation system. Departure Departure: Impression: Primary Impression: Upper respiratory infection Disposition: HOME, SELF-CARE Condition: STABLE Referrals: RANJAN JOSEPH MD (PCP) Patient Instructions: Upper Respiratory Infection, Adult Additional Instructions: Margaret was seen in the emergency department for dizziness and nasal congestion. No emergency medical condition was found on history or physical exam. She was found have symptoms consistent with a viral upper respiratory infection. She was strongly advised to use nasal saline rinses and nasal steroid sprays. She is advised follow-up with her primary care doctor in the next 3-5 days for further management. Scripts Fluticasone Propionate (Flonase Allergy Relief) 9.9 Ml [place].susp 1 SPRAYS NS BID for 7 Days, BOTTLE Prov: JERRY CRANE MD 11/18/17 Problem Qualifiers Primary Impression: Upper respiratory infection URI type: unspecified URI Qualified Codes: J06.9 - Acute upper respiratory infection, unspecified JERRY CRANE MD Nov 18, 2017 12:56
[2017-11-18 13:01] VITALS: BP 141/77
== END 2017-11-18 13:02 | disposition home or self-care (01) ==
LOC: ER 11:58
DX: J06.9 Acute upper respiratory infection, unspecified (principal); E03.9 Hypothyroidism, unspecified; E11.9 Type 2 diabetes mellitus without complications; E78.00 Pure hypercholesterolemia, unspecified; F41.9 Anxiety disorder, unspecified
CPT/HCPCS: 99283

== ENCOUNTER 2018-04-30 11:10 | Emergency (ER) | payer SELFPAY ==
[~2018-04-30] VITALS: Ht 170.2 cm; Wt 100.0 kg
[~2018-04-30 11:10] MED LIST changes: +FLUT9.9S NS
[2018-04-30 11:20] VITALS: BP 159/75
--- NOTE | 2018-04-30 11:30 | ED.ADGEN ---
Past History Past Medical History: Anxiety, Diabetes, High Cholesterol, Hypothyroid Past Surgical History: Appendectomy, Tonsillectomy, Tubal ligation, Other Alcohol Use: None Drug Use: None Adult General HPI HPI Patient had sudden onset of left flank pain at 3 AM. Her pain got worse this morning around 7:00AM causing her to leave work. Pain radiates from her left flank to her left lower quadrant. She denies any dysuria hematuria, fevers or vomiting. She's had some nausea. Her pain currently is 3/10 severity. Review of Systems Review of Systems Constitutional: Denies fever or chills Eyes: Denies change in visual acuity, redness, or eye pain HENT: Denies nasal congestion or sore throat Respiratory: Denies cough or shortness of breath Cardiovascular: Denies chest pain or palpitations GI: With left flank and LLQ abdominal pain, with nausea, no vomiting, bloody stools or diarrhea : Denies dysuria or hematuria. with left flank pain Musculoskeletal: Denies back pain or joint pain Integument: Denies rash or skin lesions Neurologic: Denies headache, focal weakness or sensory changes Endocrine: Denies polyuria or polydipsia All other systems were reviewed and found to be within normal limits, except as documented in this note. Current Medications Current Medications Current Medications Medications (Trade) Dose Ordered Sig/Caity Start Time Stop Time Status Last Admin Dose Admin Acetaminophen/ Hydrocodone Bitart (Lortab 5/325) 1 tab 1X ONCE 04/30/18 12:00 04/30/18 12:01 DC 04/30/18 12:00 1 TAB Ibuprofen (Motrin) 600 mg 1X ONCE 04/30/18 12:00 04/30/18 12:01 DC 04/30/18 12:10 600 MG Allergies Allergies Allergies Coded Allergies Type Severity Reaction Last Updated Verified No Known Drug Allergies 11/18/17 No Physical Exam Physical Exam Constitutional: Well developed, well nourished, no acute distress, non-toxic appearance. HENT: Normocephalic, atraumatic, bilateral external ears normal, oropharynx moist, no oral exudates, nose normal. Eyes: PERRLA, EOMI, conjunctiva normal, no discharge. Neck: Normal range of motion, no tenderness, supple, no stridor. Cardiovascular:Heart rate regular rhythm, no murmur Lungs & Thorax: Bilateral breath sounds clear to auscultation Abdomen: Bowel sounds normal, soft, left flank and LLQ tenderness, no masses, no pulsatile masses. Skin: Warm, dry, no erythema, no rash. Back: No tenderness, no CVA tenderness. Extremities: No tenderness, no cyanosis, no clubbing, ROM intact, no edema. Neurologic: Alert and oriented X 3, normal motor function, normal sensory function, no focal deficits noted. Psychologic: Affect normal, judgement normal, mood normal. Current Patient Data Vital Signs Vital Signs Date Time Temp Pulse Resp B/P (MAP) Pulse Ox O2 Delivery O2 Flow Rate FiO2 04/30/18 11:20 Room Air 04/30/18 11:20 98.4 69 20 97 Lab Results Laboratory Tests Test 04/30/18 11:18 04/30/18 11:49 04/30/18 14:00 Urine Collection Type U cath Urine Color Yellow Urine Clarity Clear Urine pH 6.0 Urine Specific [place] 1.020 Urine Protein 30 mg/dl (NEG-TRACE) Urine Glucose (UA) Neg mg/dL (NEG) Urine Ketones (Stick) Neg mg/dL (NEG) Urine Blood Neg (NEG) Urine Nitrite Neg (NEG) Urine Bilirubin Neg (NEG) Urine Urobilinogen Dipstick 1 mg/dL (0.2 mg/dL) Urine Leukocyte Esterase Neg (NEG) Urine RBC 0 /HPF (0-2) Urine WBC 0 /HPF (0-4) Urine Squamous Epithelial Cells Mod /LPF Urine Bacteria 0 /HPF (0-FEW) Urine Mucus Mod /LPF Urine Test Negative (NEG) POC Hemoglobin 11.2 gm/dL POC Hematocrit 33 % POC Sodium 138 mmol/L (135-145) POC Potassium 4.4 mmol/L (3.5-5.0) POC Chloride 102 mmol/L (98-110) POC Total CO2 24 mmol/L (23-32) Anion Gap 18 mmol/L (6-14) H POC Blood Urea Nitrogen 11 mg/dL (8-26) POC Creatinine 0.5 mg/dL (0.5-1.4) Glucose Level 174 mg/dL (60-99) H POC Ionized Calcium (Pao) 1.24 mmol/L (1.13-1.32) White Blood Count 8.9 x10^3/uL (4.0-11.0) Red Blood Count 4.31 x10^6/uL (3.50-5.40) Hemoglobin 12.1 g/dL (12.0-15.5) Hematocrit 35.9 % (36.0-47.0) L Mean Corpuscular Volume 83 fL (79-100) Mean Corpuscular Hemoglobin 28 pg (25-35) Mean Corpuscular Hemoglobin Concent 34 g/dL (31-37) Red Cell Distribution Width 15.0 % (11.5-14.5) H Platelet Count 279 x10^3/uL (140-400) Neutrophils (%) (Auto) 65 % (31-73) Lymphocytes (%) (Auto) 23 % (24-48) L Monocytes (%) (Auto) 9 % (0-9) Eosinophils (%) (Auto) 2 % (0-3) Basophils (%) (Auto) 1 % (0-3) Neutrophils # (Auto) 5.8 x10^3uL (1.8-7.7) Lymphocytes # (Auto) 2.0 x10^3/uL (1.0-4.8) Monocytes # (Auto) 0.8 x10^3/uL (0.0-1.1) Eosinophils # (Auto) 0.2 x10^3/uL (0.0-0.7) Basophils # (Auto) 0.0 x10^3/uL (0.0-0.2) Lipase 292 U/L (73-393) EKG EKG 13:30 ECG Sinus Bradycardia @ 58 without acute changes with normal morphology Radiology/Procedures Radiology/Procedures [address] [address] IMAGING REPORT Signed PATIENT: DONELL SHERIDAN ACCOUNT: [id number] : 1975 LOCATION: ER AGE: 42 SEX: F EXAM STATUS: PRE ER ORD. PHYSICIAN: MARÍA MCNULTY MD REASON: Left flank pain PROCEDURE: CT ABDOMEN PELVIS WO CONTRAST Abdominal and Pelvis CT, Without Contrast: History: 2 days of abdominal and Left flank pain. Comparison: None. Procedure: Axial images are obtained of the abdomen and pelvis, without IV or oral contrast. CT Abdomen without Contrast: Findings: Evaluation of solid organs is limited without contrast. Evaluation of stomach and bowel is limited without oral contrast. Liver: Normal. Spleen: Normal. Pancreas: Normal. Adrenal Glands: Normal. Kidneys: There is multiple small nonobstructive stones in the renal pelvises bilaterally. There is no free air or free fluid. There is no lymphadenopathy. Impression: Please see CT Pelvis without Contrast. End Impression. CT Pelvis without Contrast: Findings: There is a ventral abdominal wall weakening. The uterus appears within normal limits. The ovaries are not well seen and likely small. The appendix is not identified. The urinary bladder appears normal. There is no free fluid. There is no lymphadenopathy. There is no pericolonic inflammation identified. Impression: Small nonobstructive stones in the renal pelvises bilaterally. No acute findings. End impression PQRS Compliance Statement: One or more of the following individualized dose reduction techniques were utilized for this examination: 1. Automated exposure control 2. Adjustment of the mA and/or kV according to patient size 3. Use of iterative reconstruction technique Electronically signed by: Sophie Morrow III, MD (04/30/2018 1:02 PM) [facility] DICTATED AND SIGNED BY: SOPHIE MORROW III, MD DATE: 04/30/18 1768 CC: RANJAN JOSEPH MD; MARÍA MCNULTY MD ~ Course & Med Decision Making Course & Med Decision Making Patient presents with left flank and LLQ pain DDx- kidney stones, UTI, diverticulitis, ovarian cyst, The patient was stable in the ED improved after [place] and Motrin orally. U/A was unremarkable CT abdomen and pelvis was unremarkable, no acute pathology with bilateral kidney stones. labs were unremarkable. ECG unremarkable. The cause of the patient's left flank pain unclear. Patient was given her CT results and advised to follow-up with her PCP for further evaluation. Patient was given prescription for Motrin and advised to return to the ED if she developed worse pain, fevers, vomiting or SOB Final Impression Final Impression Clinical Impression Left flank pain Bilateral kidney stones Carol Disclaimer Dragon Disclaimer This electronic medical record was generated, in whole or in part, using a voice recognition dictation system. Departure Departure: Impression: Primary Impression: Left flank pain Additional Impression: Bilateral kidney stones Disposition: HOME, SELF-CARE Condition: STABLE Patient Instructions: Flank Pain, [id number] Additional Instructions: Follow-up with Dr. Joseph on Wednesday for further evaluation. If you develop worse pain, vomiting or fevers return to the ED. Scripts Ibuprofen (IBUPROFEN) 800 Mg Tablet 1 TAB PO TID, #15 TAB Prov: MARÍA MCNULTY MD 04/30/18 MARÍA MCNULTY MD Apr 30, 2018 11:30
[2018-04-30 11:42] LABS: BACTERIA,URINE 0 /HPF (0-FEW); BILIRUBIN,URINE NEG (NEG); CLARITY,URINE CLEAR; COLOR,URINE YELLOW; GLUCOSE,URINE NEG (NEG); NITRITE,URINE NEG (NEG); RBC,URINE 0 /HPF (0-2); SQUAMOUS EPITHELIAL CELL,UR MOD /LPF; UROBILINOGEN,URINE 1 mg/dL (0.2 mg/dL); WBC,URINE 0 /HPF (0-4)
[2018-04-30 11:43] LABS: U PREG PATIENT NEGATIVE (NEG)
[2018-04-30] MEDS ORDERED: IBUPROFEN 600 MG TABLET. PO ONE (12:00)
[2018-04-30] MEDS: HYDROcodone/APAP 5/325MG 1 TAB TABLET PO ONE (12:00)
[2018-04-30 12:01] LABS: HEMOGLOBIN ISTAT 11.2 gm/dL; POTASSIUM ISTAT 4.4 mmol/L (3.5-5.0)
--- NOTE | 2018-04-30 13:05 | RAD ---
Abdominal and Pelvis CT, Without Contrast: History: 2 days of abdominal and Left flank pain. Comparison: None. Procedure: Axial images are obtained of the abdomen and pelvis, without IV or oral contrast. CT Abdomen without Contrast: Findings: Evaluation of solid organs is limited without contrast. Evaluation of stomach and bowel is limited without oral contrast. Liver: Normal. Spleen: Normal. Pancreas: Normal. Adrenal Glands: Normal. Kidneys: There is multiple small nonobstructive stones in the renal pelvises bilaterally. There is no free air or free fluid. There is no lymphadenopathy. Impression: Please see CT Pelvis without Contrast. End Impression. CT Pelvis without Contrast: Findings: There is a ventral abdominal wall weakening. The uterus appears within normal limits. The ovaries are not well seen and likely small. The appendix is not identified. The urinary bladder appears normal. There is no free fluid. There is no lymphadenopathy. There is no pericolonic inflammation identified. Impression: Small nonobstructive stones in the renal pelvises bilaterally. No acute findings. End impression PQRS Compliance Statement: One or more of the following individualized dose reduction techniques were utilized for this examination: 1. Automated exposure control 2. Adjustment of the mA and/or kV according to patient size 3. Use of iterative reconstruction technique Electronically signed by: Delroy Kowalski III, MD (04/30/2018 1:02 PM) [facility]
--- NOTE | 2018-04-30 13:43 | EKG ---
[address] [address] Test Date: 2018-04-30 Test Time: 13:26:39 Pat Name: DONELL SHERIDAN Department: Room: Gender: F University Administrator: KEN : 1975 Requested By: MARÍA MCNULTY Order Number: [id number] Reading MD: Measurements Intervals [place] Rate: 58 P: 27 SD: 156 QRS: 22 QRSD: 88 T: 28 QT: 442 QTc: 438 Interpretive Statements SINUS RHYTHM QRS(T) CONTOUR ABNORMALITY CONSIDER ANTEROSEPTAL MYOCARDIAL DAMAGE POSSIBLY ABNORMAL ECG RI6.01 No previous ECG available for comparison
[2018-04-30 14:16] LABS: BASO % 1 % (0-3); EOS # 0.2 x10^3/uL (0.0-0.7); EOS % 2 % (0-3); HEMATOCRIT 35.9 % (36.0-47.0); HEMOGLOBIN 12.1 g/dL (12.0-15.5); LYMPH % 23 % (24-48); MEAN CORPUSCULAR HEMOGLOBIN 28 pg (25-35); MEAN CORPUSCULAR HGB CONC 34 g/dL (31-37); MEAN CORPUSCULAR VOLUME 83 fL (79-100); MONO # 0.8 x10^3/uL (0.0-1.1); MONO % 9 % (0-9); NEUT # 5.8 x10^3uL (1.8-7.7); NEUT % 65 % (31-73); PLATELET COUNT 279 x10^3/uL (140-400); RED BLOOD COUNT 4.31 x10^6/uL (3.50-5.40); WHITE BLOOD COUNT 8.9 x10^3/uL (4.0-11.0)
[2018-04-30] MEDS ORDERED: IBUP800T19 PO (14:46)
== END 2018-04-30 14:58 | disposition home or self-care (01) ==
LOC: ER 11:10
DX: N20.0 Calculus of kidney (principal); F41.9 Anxiety disorder, unspecified; E11.9 Type 2 diabetes mellitus without complications; E78.00 Pure hypercholesterolemia, unspecified; E03.9 Hypothyroidism, unspecified; Z90.49 Acquired absence of other specified parts of digestive tract; Z98.51 Tubal ligation status
CPT/HCPCS: 36415; 74176; 80047; 81001; 81025; 83690; 85025; 93005; 99285

== ENCOUNTER 2018-08-31 10:10 | Emergency (ER) | payer SELFPAY ==
[~2018-08-31 10:10] MED LIST changes: +IBUP800T19 PO
[2018-08-31 11:20] VITALS: BP 156/79
[2018-08-31] MEDS ORDERED: MECL12.52 PO (11:25)
--- NOTE | 2018-08-31 18:40 | PHYS DOC ---
Past History Past Medical History: Anxiety, Diabetes, High Cholesterol, Hypothyroid, Other Past Surgical History: Appendectomy, Tonsillectomy, Tubal ligation, Other Alcohol Use: None Drug Use: None Adult General Chief Complaint Chief Complaint: DIZZY/LIGHT HEADED [facility] HPI [id number] female presents with dizziness that she describes as a room spinning sensation. The patient has had this previously but has no official diagnosis. She has tried meclizine in the past, but only in the hospital. Patient states this episode started about 30 minutes prior to arrival. By the time she arrived in the ED and seemed to be resolving. She had this occur while she was at work. She states that she can feel it, but does not really know what triggers it. She has no warm all over rushing sensation. She felt "starry eyed" for a few seconds, but did not pass out. He denies fever or chills. She's been eating and drinking normally. Review of Systems Review of Systems Constitutional: Denies fever or chills [] Eyes: Denies eye pain [] HENT: Denies nasal congestion or sore throat [] Respiratory: Denies cough or shortness of breath [] Cardiovascular: No additional information not addressed in HPI [] GI: Denies abdominal pain, nausea, vomiting, bloody stools or diarrhea [] : Denies dysuria or hematuria [] Musculoskeletal: Denies back pain or joint pain [] Integument: Denies rash or skin lesions [] Neurologic: Dizziness[] Endocrine: Denies polyuria or polydipsia [] All other systems were reviewed and found to be within normal limits, except as documented in this note. Allergies Allergies Allergies Coded Allergies Type Severity Reaction Last Updated Verified No Known Drug Allergies 11/18/17 No Physical Exam Physical Exam Constitutional: Well developed, obese, well nourished, no acute distress, non- toxic appearance. [] HENT: Normocephalic, atraumatic, bilateral external ears normal, oropharynx moist, no oral exudates, nose normal. [] Eyes: PERRLA, EOMI, conjunctiva normal, no discharge. [] Neck: Normal range of motion, no tenderness, supple, no stridor. [] Cardiovascular:Heart rate regular rhythm, no murmur [] Lungs & Thorax: Bilateral breath sounds clear to auscultation [] Abdomen: Bowel sounds normal, soft, no tenderness, no masses, no pulsatile masses. [] Skin: Warm, dry, no erythema, no rash. [] Back: No tenderness, no CVA tenderness. [] Extremities: No tenderness, no cyanosis, no clubbing, ROM intact, no edema. [] Neurologic: Alert and oriented X 3, normal motor function, normal sensory function, no focal deficits noted. [] Psychologic: Affect anxious, judgement normal, mood normal. [] Current Patient Data Vital Signs Vital Signs Date Time Temp Pulse Resp B/P (MAP) Pulse Ox O2 Delivery O2 Flow Rate FiO2 08/31/18 11:20 80 18 156/79 (104) 98 Room Air 08/31/18 10:15 98.2 EKG EKG [] Radiology/Procedures Radiology/Procedures [] Course & Med Decision Making Course & Med Decision Making Pertinent Labs and Imaging studies reviewed. (See chart for details) The patient's dizziness episode radius [place] without intervention in the emergency room. The patient is feeling normal this time. Based on her description of the events and previous events, she may have benign paroxysmal vertigo and or vasovagal syndrome. I will give her a trial of meclizine to use at home. She will follow up with her primary physician. She is stable for discharge at this time. [] Dragon Disclaimer Carol Disclaimer This electronic medical record was generated, in whole or in part, using a voice recognition dictation system. Departure Departure: Impression: Primary Impression: Vasovagal syndrome Additional Impression: Benign paroxysmal positional vertigo Disposition: HOME, SELF-CARE Condition: STABLE Patient Instructions: Benign Positional Vertigo Scripts Meclizine Hcl (MECLIZINE HCL) 12.5 Mg Tablet 1 TAB PO TID PRN for DIZZINESS, #30 TAB Prov: DAVIN CORTEZ DO 08/31/18 Problem Qualifiers DAVIN CORTEZ DO Aug 31, 2018 18:39
== END 2018-08-31 11:29 | disposition home or self-care (01) ==
LOC: ER 10:10
DX: R55 Syncope and collapse (principal); H81.10 Benign paroxysmal vertigo, unspecified ear; F41.9 Anxiety disorder, unspecified; E11.9 Type 2 diabetes mellitus without complications; E78.00 Pure hypercholesterolemia, unspecified; E03.9 Hypothyroidism, unspecified
CPT/HCPCS: 99282

== ENCOUNTER 2018-09-16 19:53 | Emergency (ER) | payer SELFPAY ==
[~2018-09-16] VITALS: Ht 322.6 cm; Wt 101.2 kg
[~2018-09-16 19:53] MED LIST changes: +MECL12.52 PO
--- NOTE | 2018-09-16 19:59 | ED.ADGEN ---
Past History Past Medical History: Anxiety, Diabetes, High Cholesterol, Hypothyroid, Other Past Surgical History: Appendectomy, Tonsillectomy, Tubal ligation, Other Alcohol Use: None Drug Use: None Adult General Chief Complaint Chief Complaint ".. I got an infection in my Rt. 1st toe..... It getting red.. and sore... and I am a diabetic. HPI HPI Patient is a 43 year old female who presents with above hx and complaints Rt lst toe pain and cellulitis. Pt. appears to have start of ingrown nail on the medial side. No particular noted. But there is inflammation redness and tenderness. This neurovascular intact. Capillary refill is equal to other toes. Patient apparently has cut nails extremely short. Patient is a known diabetic. Accu-Chek here was 149. Patient states tetanus was completed approximately 2 years ago. No recent travel. No specific ill contacts. No history immunosuppression. Patient normally follows with Dr. Ponce. Review of Systems Review of Systems Constitutional: Denies fever or chills [] Eyes: Denies change in visual acuity, redness, or eye pain [] HENT: Denies nasal congestion or sore throat [] Respiratory: Denies cough or shortness of breath [] Cardiovascular: No additional information not addressed in HPI [] GI: Denies abdominal pain, nausea, vomiting, bloody stools or diarrhea [] : Denies dysuria or hematuria [] Musculoskeletal: Denies back pain or joint pain [] Integument: Denies rash or skin lesions []Hx of Right First Toe Cellulitis- ingrown nail Neurologic: Denies headache, focal weakness or sensory changes [] Endocrine: Denies polyuria or polydipsia []history of diabetes All other systems were reviewed and found to be within normal limits, except as documented in this note. Family History Family History Diabetes Current Medications Current Medications Current Medications Medications (Trade) Dose Ordered Sig/Caity Start Time Stop Time Status Last Admin Dose Admin Trimethoprim/ Sulfamethoxazole (Bactrim Ds) 1 tab 1X ONCE 09/16/18 20:30 09/16/18 20:31 DC 09/16/18 20:25 1 TAB Allergies Allergies Allergies Coded Allergies Type Severity Reaction Last Updated Verified No Known Drug Allergies 11/18/17 No Physical Exam Physical Exam Constitutional: , moderately acute distress, non-toxic appearance. [] HENT: Normocephalic, atraumatic, bilateral external ears normal, oropharynx moist, no oral exudates, nose normal. [] Eyes: PERRLA, EOMI, conjunctiva normal, no discharge. [] Neck: Normal range of motion, no tenderness, supple, no stridor. [] Cardiovascular:Heart rate regular rhythm, no murmur [] Lungs & Thorax: Bilateral breath sounds clear to auscultation [] Abdomen: Bowel sounds normal, soft, no tenderness, no masses, no pulsatile masses. [] Obese. Old surgery scar Skin: Warm, dry, no erythema, no rash. [] Findings of right first toe cellulitis as per history of present illness Back: No tenderness, no CVA tenderness. [] Extremities: No tenderness, no cyanosis, no clubbing, ROM intact, no edema. [] Neurologic: Alert and oriented X 3, normal motor function, normal sensory function, no focal deficits noted. [] Psychologic: Affect normal, judgement normal, mood normal. [] Current Patient Data Vital Signs Vital Signs Date Time Temp Pulse Resp B/P (MAP) Pulse Ox O2 Delivery O2 Flow Rate FiO2 09/16/18 20:00 98.1 100 20 97 Room Air Lab Results Laboratory Tests Test 09/16/18 20:10 Glucose (Fingerstick) 149 mg/dL (70-99) H EKG EKG [] Radiology/Procedures Radiology/Procedures [] Course & Med Decision Making Course & Med Decision Making Pertinent Labs and Imaging studies reviewed. (See chart for details). Patient is to use warm salt water or Epsom salts water soaks 4 times a day. Afterwards use a small amount of cotton or gauze to tuck under edge of nail. Attempt to re train nail edge or elevate slow ly the ingrown portion of nail. After soaks in salt water, apply A & D ointment to feet. Wear white socks. Do not wear shoes that pinch the feet. Tylenol and Ibuprofen for pain. Bactrim DS twice a day. Control glucose levels. Allow nails to grown out more, attempt to cut nails straight across. Follow up with Dr. Ponce. Return if any concerns. [] Final Impression Final Impression 1. Rt Toe Cellulitis[] Dragon Disclaimer Dragon Disclaimer This electronic medical record was generated, in whole or in part, using a voice recognition dictation system. TIFFANIE SERRANO MD Sep 16, 2018 19:59
[2018-09-16 20:00] VITALS: BP 156/79
[2018-09-16] MEDS ORDERED: SULF1TAB24 PO (20:19)
[2018-09-16] MEDS ORDERED: SMZ/TMP 800/160MG TABLET. PO ONE (20:30)
== END 2018-09-16 20:25 | disposition home or self-care (01) ==
LOC: ER 19:53
DX: L03.031 Cellulitis of right toe (principal); E11.9 Type 2 diabetes mellitus without complications; E78.00 Pure hypercholesterolemia, unspecified; E03.9 Hypothyroidism, unspecified; F41.9 Anxiety disorder, unspecified
CPT/HCPCS: 82947; 99283

== ENCOUNTER 2018-09-30 10:34 | Emergency (ER) | payer OTHER ==
[~2018-09-30] VITALS: Ht 170.2 cm; Wt 101.2 kg
[~2018-09-30 10:34] MED LIST changes: +SULF1TAB24 PO
[2018-09-30 11:22] LABS: BASO % 0 % (0-3); EOS # 0.2 x10^3/uL (0.0-0.7); EOS % 2 % (0-3); HEMATOCRIT 37.1 % (36.0-47.0); HEMOGLOBIN 12.6 g/dL (12.0-15.5); LYMPH # 1.6 x10^3/uL (1.0-4.8); LYMPH % 18 % (24-48); MEAN CORPUSCULAR HEMOGLOBIN 29 pg (25-35); MEAN CORPUSCULAR HGB CONC 34 g/dL (31-37); MEAN CORPUSCULAR VOLUME 84 fL (79-100); MONO # 0.7 x10^3/uL (0.0-1.1); MONO % 8 % (0-9); NEUT # 6.3 x10^3uL (1.8-7.7); NEUT % 72 % (31-73); PLATELET COUNT 292 x10^3/uL (140-400); RED BLOOD COUNT 4.42 x10^6/uL (3.50-5.40); RED CELL DISTRIBUTION WIDTH 15.4 % (11.5-14.5); WHITE BLOOD COUNT 8.8 x10^3/uL (4.0-11.0)
[2018-09-30 11:31] LABS: BILIRUBIN,URINE NEG (NEG); CLARITY,URINE CLEAR; COLOR,URINE YELLOW; GLUCOSE,URINE >=1000 mg/dL (NEG)
[2018-09-30 11:32] LABS: BACTERIA,URINE FEW /HPF (0-FEW); NITRITE,URINE NEG (NEG); RBC,URINE RARE /HPF (0-2); SQUAMOUS EPITHELIAL CELL,UR MANY /LPF; UROBILINOGEN,URINE 0.2 mg/dL (0.2 mg/dL)
[2018-09-30 11:42] LABS: ALBUMIN 3.7 g/dL (3.4-5.0); ALBUMIN/GLOBULIN RATIO 0.9 (1.0-1.7); CALCIUM 8.8 mg/dL (8.5-10.1); CREATININE 0.8 mg/dL (0.6-1.0); GFR 78.3; MAGNESIUM 1.8 mg/dL (1.8-2.4); POTASSIUM 4.2 mmol/L (3.5-5.1); TOTAL BILIRUBIN 0.3 mg/dL (0.2-1.0)
--- NOTE | 2018-09-30 11:58 | PHYS DOC ---
Past History Past Medical History: Anxiety, Depression, Diabetes, High Cholesterol, Hypertension, Hypothyroid, Other Past Surgical History: Appendectomy, Tonsillectomy, Tubal ligation Smoking: Quit Less Than 1 Year Alcohol Use: None Drug Use: None Adult General Chief Complaint Chief Complaint: chest pain, dizziness [facility] Patient is a 43 year old female who was in by EMS because of chest pain and dizziness. Patient states she was standing at her work and suddenly felt left site chest pain with radiation to left shoulder and left wrist associated with shortness of breath, palpitation, dizziness that last about 20 minutes and resolved with rest but her dizziness did not stop and she called 911. Patient states she had episodes of anxiety attacks with the same symptoms previously. Review of Systems Review of Systems Constitutional: Denies fever or chills [] Eyes: Denies change in visual acuity, redness, or eye pain [] HENT: Denies nasal congestion or sore throat [] Respiratory: Denies cough or shortness of breath [] Cardiovascular: No additional information not addressed in HPI [] GI: Denies abdominal pain, nausea, vomiting, bloody stools or diarrhea [] : Denies dysuria or hematuria [] Musculoskeletal: Denies back pain or joint pain [] Integument: Denies rash or skin lesions [] Neurologic: Denies headache, focal weakness or sensory changes , reports dizziness[] Endocrine: Denies polyuria or polydipsia [] All other systems were reviewed and found to be within normal limits, except as documented in this note. Allergies Allergies Allergies Coded Allergies Type Severity Reaction Last Updated Verified No Known Drug Allergies 11/18/17 No Physical Exam Physical Exam Constitutional: Well developed, well nourished, mild distress, non-toxic appearance. [] HENT: Normocephalic, atraumatic, oropharynx moist, no oral exudates, nose normal. [] Eyes: PERRLA, EOMI, conjunctiva normal, no discharge. [] Neck: Normal range of motion, no tenderness, supple, no stridor. [] Cardiovascular:Heart rate regular rhythm, no murmur [] Lungs & Thorax: Bilateral breath sounds clear to auscultation [] Abdomen: Bowel sounds normal, soft, no tenderness, no masses, no pulsatile masses. [] Skin: Warm, dry, no erythema, no rash. [] Back: No tenderness, no CVA tenderness. [] Extremities: No tenderness, no cyanosis, no clubbing, ROM intact, no edema. [] Neurologic: Alert and oriented X 3, normal motor function, normal sensory function, no focal deficits noted. [] Psychologic: Affect normal, judgement normal, mood normal. [] Current Patient Data Vital Signs Vital Signs Date Time Temp Pulse Resp B/P (MAP) Pulse Ox O2 Delivery O2 Flow Rate FiO2 09/30/18 11:12 84 16 135/75 (95) 98 Room Air 09/30/18 10:35 98.4 Lab Results Laboratory Tests Test 09/30/18 10:57 09/30/18 11:05 Urine Collection Type Unknown Urine Color Yellow Urine Clarity Clear Urine pH 5.5 Urine Specific [place] 1.020 Urine Protein 100 mg/dl (NEG-TRACE) Urine Glucose (UA) >=1000 mg/dL (NEG) Urine Ketones (Stick) Trace mg/dL (NEG) Urine Blood Trace (NEG) Urine Nitrite Neg (NEG) Urine Bilirubin Neg (NEG) Urine Urobilinogen Dipstick 0.2 mg/dL (0.2 mg/dL) Urine Leukocyte Esterase Neg (NEG) Urine RBC Rare /HPF (0-2) Urine WBC 1-4 /HPF (0-4) Urine Squamous Epithelial Cells Many /LPF Urine Bacteria Few /HPF (0-FEW) Urine Mucus Mod /LPF White Blood Count 8.8 x10^3/uL (4.0-11.0) Red Blood Count 4.42 x10^6/uL (3.50-5.40) Hemoglobin 12.6 g/dL (12.0-15.5) Hematocrit 37.1 % (36.0-47.0) Mean Corpuscular Volume 84 fL (79-100) Mean Corpuscular Hemoglobin 29 pg (25-35) Mean Corpuscular Hemoglobin Concent 34 g/dL (31-37) Red Cell Distribution Width 15.4 % (11.5-14.5) H Platelet Count 292 x10^3/uL (140-400) Neutrophils (%) (Auto) 72 % (31-73) Lymphocytes (%) (Auto) 18 % (24-48) L Monocytes (%) (Auto) 8 % (0-9) Eosinophils (%) (Auto) 2 % (0-3) Basophils (%) (Auto) 0 % (0-3) Neutrophils # (Auto) 6.3 x10^3uL (1.8-7.7) Lymphocytes # (Auto) 1.6 x10^3/uL (1.0-4.8) Monocytes # (Auto) 0.7 x10^3/uL (0.0-1.1) Eosinophils # (Auto) 0.2 x10^3/uL (0.0-0.7) Basophils # (Auto) 0.0 x10^3/uL (0.0-0.2) Sodium Level 134 mmol/L (136-145) L Potassium Level 4.2 mmol/L (3.5-5.1) Chloride Level 99 mmol/L (98-107) Carbon Dioxide Level 23 mmol/L (21-32) Anion Gap 12 (6-14) Blood Urea Nitrogen 10 mg/dL (7-20) Creatinine 0.8 mg/dL (0.6-1.0) Estimated GFR (Cockcroft-Gault) 78.3 BUN/Creatinine Ratio 13 (6-20) Glucose Level 271 mg/dL (70-99) H Calcium Level 8.8 mg/dL (8.5-10.1) Magnesium Level 1.8 mg/dL (1.8-2.4) Total Bilirubin 0.3 mg/dL (0.2-1.0) Aspartate Amino Transferase (AST) 15 U/L (15-37) Alanine Aminotransferase (ALT) 23 U/L (14-59) Alkaline Phosphatase 108 U/L (46-116) Creatine Kinase 97 U/L (26-192) Troponin I Quantitative < 0.017 ng/mL (0-0.055) SC-Drm-N-Type Natriuretic Peptide 13 pg/mL (0-124) Total Protein 8.0 g/dL (6.4-8.2) Albumin 3.7 g/dL (3.4-5.0) Albumin/Globulin Ratio 0.9 (1.0-1.7) L Lipase 272 U/L (73-393) EKG EKG EKG interpreted by me. EKG at 1045 showed normal sinus rhythm at rate of 77, nonspecific EKG abnormalities. Radiology/Procedures Radiology/Procedures [address] [address] IMAGING REPORT Signed PATIENT: DONELL SHERIDAN ACCOUNT: [id number] : 1975 LOCATION: ER AGE: 43 SEX: F EXAM STATUS: DEP ER ORD. PHYSICIAN: KINDRA GERMAIN MD REASON: chest pain PROCEDURE: PORTABLE CHEST 1V Portable chest, 09/30/2018: HISTORY: Chest pain Comparison is made to a study from 09/15/2017. The heart size and pulmonary vascularity are normal. No pulmonary infiltrate is seen. There is no evidence of pleural fluid. IMPRESSION: No acute cardiopulmonary abnormality is detected. Electronically signed by: Aristides Tam MD (09/30/2018 11:08 AM) [facility] DICTATED AND SIGNED BY: ARISTIDES TAM MD DATE: 09/30/18 1104 CC: RANJAN JOSEPH MD; KINDRA GERMAIN MD ~ Course & Med Decision Making Course & Med Decision Making Pertinent Labs and Imaging studies reviewed. (See chart for details) Evaluation of patient in ER showed 43-year-old female patient with history of frequent emergency room visits and anxiety is him by EMS because of dizziness after one episode of chest pain. Patient had unremarkable EKG, physical exam, labs and vital signs and felt better while she was in ER. Plan discharge patient home to diagnose of panic attack. Dragon Disclaimer Dragon Disclaimer This electronic medical record was generated, in whole or in part, using a voice recognition dictation system. Departure Departure: Impression: Primary Impression: Musculoskeletal chest pain Additional Impressions: Anxiety Uncontrolled diabetes mellitus Dizziness Disposition: 01 HOME, SELF-CARE (at 1156) Condition: IMPROVED Referrals: RANJAN JOSEPH MD (PCP) Patient Instructions: Anxiety and Panic Attacks, Chest Wall Pain, Diet - 2000 Calorie Diabetic, How to Avoid Diabetes Problems Additional Instructions: Drink plenty of liquids Follow-up with your primary care physician in 2-3 days Return to ER if not getting better Problem Qualifiers KINDRA GERMAIN MD Sep 30, 2018 11:58
[2018-09-30 12:06] VITALS: BP 112/69
--- NOTE | 2018-09-30 13:58 | RAD ---
Portable chest, 09/30/2018: HISTORY: Chest pain Comparison is made to a study from 09/15/2017. The heart size and pulmonary vascularity are normal. No pulmonary infiltrate is seen. There is no evidence of pleural fluid. IMPRESSION: No acute cardiopulmonary abnormality is detected. Electronically signed by: Aristides Tam MD (09/30/2018 11:08 AM) [facility]
--- NOTE | 2018-09-30 19:32 | EKG ---
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
== END 2018-09-30 12:08 | disposition home or self-care (01) ==
LOC: ER 10:34
DX: F41.9 Anxiety disorder, unspecified (principal); R42 Dizziness and giddiness; E11.65 Type 2 diabetes mellitus with hyperglycemia; F32.9 Major depressive disorder, single episode, unspecified; E78.00 Pure hypercholesterolemia, unspecified; I10 Essential (primary) hypertension; E03.9 Hypothyroidism, unspecified; Z87.891 Personal history of nicotine dependence
CPT/HCPCS: 36415; 71045; 80053; 81001; 82550; 83690; 83735; 83880; 84484; 85025; 93005; 99284

== ENCOUNTER 2018-11-14 17:58 | Emergency (ER) | payer SELFPAY ==
[~2018-11-14] VITALS: Ht 170.2 cm; Wt 101.1 kg
--- NOTE | 2018-11-14 18:01 | ED.ADGEN ---
Past History Past Medical History: Anxiety, Depression, Diabetes, High Cholesterol, Hypertension, Hypothyroid, Other Past Surgical History: Appendectomy, Tonsillectomy, Tubal ligation Smoking: Quit Less Than 1 Year Alcohol Use: None Drug Use: None Adult General Chief Complaint Chief Complaint ".. I ve been ...Coughing..Nausea.. just not feeling well the last couple days..." HPI HPI Patient is a 43 year old female who presents with above hx with complaints nausea and nonproductive cough. She has had some loose stools. Patient has had some congestion and drainage. Patient does have history of anxiety, hypertension , hypothyroidism, depression, GERD and elevated cholesterol. No history of bad food intake. No history of trauma. No history of immunosuppression. No history of recent travel Does follow-up primary care . Review of Systems Review of Systems Constitutional: subjective fever or chills [] Eyes: Denies change in visual acuity, redness, or eye pain [] HENT: Denies nasal congestion or sore throat [] Respiratory: Hx non-productive cough Cardiovascular: No additional information not addressed in HPI [] GI: abdominal discomfort and nausea. denies current vomiting, bloody stools or diarrhea [] : Denies dysuria or hematuria [] Musculoskeletal: Denies back pain or joint pain [] Integument: Denies rash or skin lesions [] Neurologic: Denies headache, focal weakness or sensory changes [] Endocrine: Denies polyuria or polydipsia [] All other systems were reviewed and found to be within normal limits, except as documented in this note. Family History Family History Daughter sick with viral illness Current Medications Current Medications Current Medications Medications (Trade) Dose Ordered Sig/Caity Start Time Stop Time Status Last Admin Dose Admin Ondansetron HCl (Zofran Odt) 8 mg 1X ONCE 11/14/18 20:30 11/14/18 20:31 DC Allergies Allergies Allergies Coded Allergies Type Severity Reaction Last Updated Verified No Known Drug Allergies 11/14/18 No Physical Exam Physical Exam Constitutional: , mild distress, non-toxic appearance. [] HENT: Normocephalic, atraumatic, bilateral external ears normal, oropharynx moist, mild injection of pharynx ,no oral exudates, nose swollen turbinates and clear rhinorrhea. Eyes: PERRLA, EOMI, conjunctiva normal, no discharge. [] Neck: Normal range of motion, no tenderness, supple, no stridor. [] Cardiovascular:Heart rate regular rhythm, no murmur [] Lungs & Thorax: Bilateral breath sounds equal at apexes with a few scattered wheezes auscultation [] Abdomen: Bowel sounds hyperactive,, soft, mild generalized tenderness, no masses , no pulsatile masses. Old surgery scar Skin: Warm, dry, no erythema, no rash. [] Back: No tenderness, no CVA tenderness. [] Extremities: No tenderness, no cyanosis, no clubbing, ROM intact, no edema. [] Neurologic: Alert and oriented X 3, normal motor function, normal sensory function, no focal deficits noted. [] Psychologic: Affect anxious, judgement normal, mood normal. [] Current Patient Data Vital Signs Vital Signs Date Time Temp Pulse Resp B/P (MAP) Pulse Ox O2 Delivery O2 Flow Rate FiO2 11/14/18 18:10 98.3 98 18 97 Room Air Lab Results Laboratory Tests Test 11/14/18 18:05 11/14/18 18:55 Influenza Type A (Rapid) Negative (NEGATIVE) Influenza Type B (Rapid) Negative (NEGATIVE) Group A Streptococcus Rapid Negative (NEGATIVE) Urine Collection Type Unknown Urine Color Straw Urine Clarity Clear Urine pH 6.0 Urine Specific [place] 1.020 Urine Protein 100 mg/dl (NEG-TRACE) Urine Glucose (UA) 250 mg/dL (NEG) Urine Ketones (Stick) 15 mg/dL (NEG) Urine Blood Trace (NEG) Urine Nitrite Neg (NEG) Urine Bilirubin Neg (NEG) Urine Urobilinogen Dipstick 1 mg/dL (0.2 mg/dL) Urine Leukocyte Esterase Neg (NEG) Urine RBC 1-2 /HPF (0-2) Urine WBC 1-4 /HPF (0-4) Urine Squamous Epithelial Cells Few /LPF Urine Bacteria Few /HPF (0-FEW) Urine Opiates Screen Neg (NEG) Urine Methadone Screen Neg (NEG) Urine Barbiturates Neg (NEG) Urine Phencyclidine Screen Neg (NEG) Urine Amphetamine/Methamphetamine Neg (NEG) Urine Benzodiazepines Screen Neg (NEG) Urine Cocaine Screen Neg (NEG) Urine Cannabinoids Screen Neg (NEG) Urine Ethyl Alcohol Neg (NEG) EKG EKG [] Radiology/Procedures Radiology/Procedures [] Course & Med Decision Making Course & Med Decision Making Pertinent Labs and Imaging studies reviewed. (See chart for details). Clear fluid diet. Push fluids. Push fruit juices. Take Zofran 8 mg up 4 times a day for nausea and vomiting. Tylenol and ibuprofen for pain. Follow-up primary care. Return if any concerns. Return if any concerns. Follow-up primary care [] Final Impression Final Impression 1. Nausea[] 2. Viral Syndrome 3 Dragon Disclaimer Dragon Disclaimer This electronic medical record was generated, in whole or in part, using a voice recognition dictation system. Dragon Disclaimer This chart was dictated in whole or in part using Voice Recognition software in a busy, high-work load, and often noisy Emergency Department environment. It may contain unintended and wholly unrecognized errors or omissions. Dragon Disclaimer This chart was dictated in whole or in part using Voice Recognition software in a busy, high-work load, and often noisy Emergency Department environment. It may contain unintended and wholly unrecognized errors or omissions. Discharge Summary Visit Information Final Diagnosis Problems Medical Problems: (1) Viral syndrome Status: Acute Brief Hospital Course Allergies Allergies Coded Allergies Type Severity Reaction Last Updated Verified No Known Drug Allergies 11/14/18 No Vital Signs Vital Signs Date Time Temp Pulse Resp B/P (MAP) Pulse Ox O2 Delivery O2 Flow Rate FiO2 11/14/18 18:10 98.3 98 18 97 Room Air Lab Results Laboratory Tests Test 11/14/18 18:05 11/14/18 18:55 Influenza Type A (Rapid) Negative (NEGATIVE) Influenza Type B (Rapid) Negative (NEGATIVE) Group A Streptococcus Rapid Negative (NEGATIVE) Urine Collection Type Unknown Urine Color Straw Urine Clarity Clear Urine pH 6.0 Urine Specific [place] 1.020 Urine Protein 100 mg/dl (NEG-TRACE) Urine Glucose (UA) 250 mg/dL (NEG) Urine Ketones (Stick) 15 mg/dL (NEG) Urine Blood Trace (NEG) Urine Nitrite Neg (NEG) Urine Bilirubin Neg (NEG) Urine Urobilinogen Dipstick 1 mg/dL (0.2 mg/dL) Urine Leukocyte Esterase Neg (NEG) Urine RBC 1-2 /HPF (0-2) Urine WBC 1-4 /HPF (0-4) Urine Squamous Epithelial Cells Few /LPF Urine Bacteria Few /HPF (0-FEW) Urine Opiates Screen Neg (NEG) Urine Methadone Screen Neg (NEG) Urine Barbiturates Neg (NEG) Urine Phencyclidine Screen Neg (NEG) Urine Amphetamine/Methamphetamine Neg (NEG) Urine Benzodiazepines Screen Neg (NEG) Urine Cocaine Screen Neg (NEG) Urine Cannabinoids Screen Neg (NEG) Urine Ethyl Alcohol Neg (NEG) Brief Hospital Course Ms. Hidalgo is a 43 old female who presented with viral syndrome. Discharge Information Condition at Discharge: Improved, Stable Disposition/Orders: D/C to Home Dischare Medications Current Medications Ondansetron HCl (Zofran Odt) 8 mg 1X ONCE PO ; Start 11/14/18 at 20:30; Stop at 20:31; Status DC Active Scripts Active Zofran (Ondansetron Hcl) 8 Mg Tablet 8 Mg PO QIDPRN PRN Bactrim Ds Tablet (Sulfamethoxazole/Trimethoprim) 1 Each Tablet 1 Tab PO BID Meclizine Hcl 12.5 Mg Tablet 1 Tab PO TID PRN Ibuprofen 800 Mg Tablet 1 Tab PO TID Flonase Allergy Relief (Fluticasone Propionate) 9.9 Ml [place].susp 1 Sprays NS BID 7 Days Amoxicillin 875 Mg Tablet 1 Tab PO BID Meclizine Hcl 25 Mg Tablet 1 Tab PO TID PRN Discharge Summary Visit Information Final Diagnosis Problems Medical Problems: (1) Viral syndrome Status: Acute Brief Hospital Course Allergies Allergies Coded Allergies Type Severity Reaction Last Updated Verified No Known Drug Allergies 11/14/18 No Vital Signs Vital Signs Date Time Temp Pulse Resp B/P (MAP) Pulse Ox O2 Delivery O2 Flow Rate FiO2 11/14/18 18:10 98.3 98 18 97 Room Air Lab Results Laboratory Tests Test 11/14/18 18:05 11/14/18 18:55 Influenza Type A (Rapid) Negative (NEGATIVE) Influenza Type B (Rapid) Negative (NEGATIVE) Group A Streptococcus Rapid Negative (NEGATIVE) Urine Collection Type Unknown Urine Color Straw Urine Clarity Clear Urine pH 6.0 Urine Specific [place] 1.020 Urine Protein 100 mg/dl (NEG-TRACE) Urine Glucose (UA) 250 mg/dL (NEG) Urine Ketones (Stick) 15 mg/dL (NEG) Urine Blood Trace (NEG) Urine Nitrite Neg (NEG) Urine Bilirubin Neg (NEG) Urine Urobilinogen Dipstick 1 mg/dL (0.2 mg/dL) Urine Leukocyte Esterase Neg (NEG) Urine RBC 1-2 /HPF (0-2) Urine WBC 1-4 /HPF (0-4) Urine Squamous Epithelial Cells Few /LPF Urine Bacteria Few /HPF (0-FEW) Urine Opiates Screen Neg (NEG) Urine Methadone Screen Neg (NEG) Urine Barbiturates Neg (NEG) Urine Phencyclidine Screen Neg (NEG) Urine Amphetamine/Methamphetamine Neg (NEG) Urine Benzodiazepines Screen Neg (NEG) Urine Cocaine Screen Neg (NEG) Urine Cannabinoids Screen Neg (NEG) Urine Ethyl Alcohol Neg (NEG) Brief Hospital Course Ms. Hidalgo is a 43 old [sex] who presented with [ ] Discharge Information Dischare Medications Current Medications Ondansetron HCl (Zofran Odt) 8 mg 1X ONCE PO ; Start 11/14/18 at 20:30; Stop at 20:31; Status DC Active Scripts Active Zofran (Ondansetron Hcl) 8 Mg Tablet 8 Mg PO QIDPRN PRN Bactrim Ds Tablet (Sulfamethoxazole/Trimethoprim) 1 Each Tablet 1 Tab PO BID Meclizine Hcl 12.5 Mg Tablet 1 Tab PO TID PRN Ibuprofen 800 Mg Tablet 1 Tab PO TID Flonase Allergy Relief (Fluticasone Propionate) 9.9 Ml [place].susp 1 Sprays NS BID 7 Days Amoxicillin 875 Mg Tablet 1 Tab PO BID Meclizine Hcl 25 Mg Tablet 1 Tab PO TID PRN TIFFANIE SERRANO MD Nov 14, 2018 18:01
[2018-11-14 18:10] VITALS: BP 164/86
[2018-11-14 19:20] LABS: BARBITURATES NEG (NEG); BENZODIAZEPINES NEG (NEG); CANNABINOIDS NEG (NEG); COCAINE NEG (NEG); METHADONE NEG (NEG); OPIATES NEG (NEG); PHENCYCLIDINE NEG (NEG)
[2018-11-14 19:26] LABS: AMPHETAMINE/METHAMPHETAMINE NEG (NEG)
[2018-11-14 19:39] LABS: BILIRUBIN,URINE NEG (NEG); CLARITY,URINE CLEAR; COLOR,URINE STRAW; GLUCOSE,URINE 250 mg/dL (NEG); UROBILINOGEN,URINE 1 mg/dL (0.2 mg/dL)
[2018-11-14 19:40] LABS: BACTERIA,URINE FEW /HPF (0-FEW); NITRITE,URINE NEG (NEG); SQUAMOUS EPITHELIAL CELL,UR FEW /LPF
[2018-11-14 19:49] LABS: INFLUENZA A PATIENT NEGATIVE (NEGATIVE); INFLUENZA B PATIENT NEGATIVE (NEGATIVE)
[2018-11-14] MEDS ORDERED: ONDANSETRON ODT 4 MG TAB.RAPDIS PO ONE (20:30)
[2018-11-14] MEDS ORDERED: ONDA8TAB9 PO (20:33)
== END 2018-11-14 20:35 | disposition home or self-care (01) ==
LOC: ER 17:58
DX: B34.9 Viral infection, unspecified (principal); E11.9 Type 2 diabetes mellitus without complications; E78.00 Pure hypercholesterolemia, unspecified; I10 Essential (primary) hypertension; E03.9 Hypothyroidism, unspecified; K21.9 Gastro-esophageal reflux disease without esophagitis; Z87.891 Personal history of nicotine dependence
CPT/HCPCS: 36415; 80307; 81001; 87070; 87804; 87880; 99283; 99284

== ENCOUNTER → 2018-12-23 | Outpatient (CLI) | payer SELFPAY ==
[~2018-12-23] MED LIST changes: +ONDA8TAB9 PO
[2018-12-24 08:11] LABS: THYROPEROXIDASE ANTIBODY >600 IU/mL (0-34)
== END | disposition home or self-care (01) ==
LOC: SPEC 12:40
PROVIDERS: ATTEND Nurse Practitioner Family
DX: E03.9 Hypothyroidism, unspecified (principal)
CPT/HCPCS: 36415; 86376; 86800